=== PATIENT | female | born 1940 | race African-American/Black ===

== ENCOUNTER 2017-04-12 14:14 | Emergency (ER) | payer MEDICARE, BC ==
[~2017-04-12] VITALS: Ht 157.5 cm; Wt 68.0 kg
--- NOTE | 2017-04-12 14:31 | Emergency Room Report ---
History of Present Illness General Chief Complaint: Head Injury Source: Patient Present Illness HPI 77-year-old female, with history of hypertension, end-stage renal disease on peritoneal dialysis, not on any blood thinners, no aspirin, presenting with fall and closed head injury. Patient states that she was waiting for her taxi to calm, sent down from a high curb, missed a step and then fell forward. Patient states that she fell face first, hit her forehead, sustaining laceration and hematoma to left forehead. There is no LOC. Patient got up with assistance. Patient is able to ambulate after the fall. She denies any blurry vision nausea vomiting. Patient also sustained abrasion to left knee. Only complaining of pain to left forehead. States that she has chronic neck pain but not necessarily worse than normal Allergies: Coded Allergies: No Known Allergies (Unverified , 04/12/17) Patient History Past Medical History: see triage record Past Surgical History: none Pertinent Family History: none Reviewed Nursing Documentation: PMH: Agreed, PSxH: Agreed Nursing Documentation-PMH Hx Hypertension: Yes Hx Dialysis: Yes Hx Seizures: Yes Review of Systems All Other Systems: negative except mentioned in HPI Physical Exam Vital Signs Date Time Temp Pulse Resp B/P (MAP) Pulse Ox O2 Delivery O2 Flow Rate FiO2 04/12/17 14:13 97.9 76 16 175/90 98 Room Air Sp02 EP Interpretation: reviewed, normal General Appearance: normal inspection, well appearing, no apparent distress, alert, GCS 15, non-toxic Head: normocephalic - Left not boggy 5 x 5 cm hematoma left forehead, 3 cm linear laceration under her left eyebrow. No active bleeding Eyes: bilateral eye normal inspection, bilateral eye PERRL, bilateral eye EOMI ENT: normal ENT inspection, normal pharynx, normal voice, moist mucus membranes Neck: full range of motion, other - Paraspinal cervical tenderness, no midline tenderness Respiratory: normal inspection, lungs clear, normal breath sounds, no respiratory distress, no retraction, no wheezing, speaking full sentences, chest symmetrical Cardiovascular #1: normal inspection, regular rate, rhythm, no edema, normal capillary refill Cardiovascular #2: 2+ radial (R), 2+ radial (L) Gastrointestinal: normal inspection, non tender, soft, non-distended, no guarding Musculoskeletal: normal inspection, back normal, normal range of motion, non- tender, other - abrasion to b/l knees. no effusion. FROM Neurologic: normal inspection, alert, oriented x3, responsive, [employer] worker III-XII nml as tested, motor strength/tone normal, sensory intact, speech normal Psychiatric: normal inspection, judgement/insight normal, memory normal Skin: normal inspection, normal color, no rash, warm/dry, well hydrated, normal turgor Procedures Laceration/Wound Repair Laceration/Wound Repair : Consent: Verbal Wound Location: head Wound's Depth, Shape: superficial Wound Length (cm): 4 Wound Explored: clean Irrigated w/ Saline (ccs): 500 Betadine Prep?: Yes Anesthesia: 1% Lidocaine Volume Anesthetic (ccs): 3 Wound Repaired With: sutures Suture Size/Type: 6:0 Number of Sutures: 6 Sterile Dressing Applied?: Yes Patient Tolerated: Well Complications: None Medical Decision Making Diagnostic Impression: Primary Impression: Closed head injury Additional Impression: Facial laceration ER Course 77-year-old female, with mechanical fall Tetanus is already up to date DDX: Mechanical fall, closed head injury, rule out intracranial bleed Plan: CT head and CT C-spine Lac repair ER course: Patient has remained stable during ED stay. Has remained awake alert, conversive Lac repaired on forehead Disposition: Patient is to be discharged to home. Patient is instructed to follow up with their primary care doctor OR ED in 5-7 days for suture removal Strict return precautions discussed with patient such as worsening/severe pain , blurry vision, nausea, vomiting, motor or sensory weakness which may indicate severe illness. Patient verbalizes understanding and agrees with plan. Please note that this Emergency Department Report was dictated using [employer] project management technology software, occasionally this can lead to erroneous entry secondary to interpretation by the dictation equipment CT/MRI/US Diagnostic Results CT/MRI/US Diagnostic Results #1: Imaging Test Ordered: CT C spine Impression Findings: There is slight reversal of the normal cervical lordosis in the lower cervical spine. There is very slight posterior displacement of C6 and C7. The remainder the bony alignment is normal. There is degenerative remodeling of the C6 vertebral body. The remaining vertebral body heights are preserved. There is degenerative disc narrowing at C5-6 and C6-7. The remaining disc spaces are preserved. No acute fractures. There is thickening and calcification of the posterior aspect of the atlantoaxial ligament. There is slight irregularity of the tip of the odontoid. At C4-5, there is mild to moderate narrowing of the right neural foramen due to facet degeneration. No significant disc bulge or protrusion or spinal stenosis. At C5-6, there is marked degenerative disc narrowing, as mentioned earlier. There appears to be partial ankylosis of the disc. There is mild circumferential annular bulge and posterior osteophyte formation which results in borderline narrowing of the spinal canal. There is minimal right and mild left neural foraminal stenosis , due to uncinate and facet hypertrophy. At C6-7, posterior disc bulge/osteophyte complex results in moderate narrowing of the spinal canal. There is moderate to severe right, moderate left neural foraminal stenosis, due predominantly uncinate hypertrophy. Progress of the remaining disc levels, no significant disc bulge or protrusion, spinal stenosis, or neural frontal stenosis. There is incidental finding of right maxillary sinus disease. There is a calcified nodule in the right thyroid lobe and generalized heterogeneity of the right thyroid lobe Impression: No acute bony trauma Degenerative changes as detailed on a level basis above Right maxillary sinus disease Calcified subcentimeter nodule in the right thyroid lobe and generalized heterogeneity of the right thyroid lobe. No further followup necessary CT/MRI/US Diagnostic Results #2: Imaging Test Ordered: CT Head Impression Findings: There is a left periorbital and frontal supraorbital scalp hematoma. No underlying calvarial fracture demonstrated. No acute hemorrhage nor edema. No mass effect or midline shift. Small old lacunar infarct is seen in the anterior left souza radiata. There is age-related enlargement of ventricles and extra axial CSF spaces. There is periventricular deep white matter chronic ischemic change. There is right maxillary sinus mucosal disease. The mastoids are clear. The orbits are unremarkable. Impression: Evidence of periorbital and supraorbital scalp soft tissue trauma on the left Negative for acute intracranial bleed or mass effect Chronic and age-related changes, as described Sinus disease Last Vital Signs Date Time Temp Pulse Resp B/P (MAP) Pulse Ox O2 Delivery O2 Flow Rate FiO2 04/12/17 14:13 97.9 76 16 175/90 98 Room Air Disposition: HOME, SELF-CARE Condition: Improved Patient Instructions: Facial Laceration, [id number] Additional Instructions: PLEASE COME BACK TO THE ED OR YOUR PCP IN 5-7 DAYS FOR SUTURE REMOVAL Mary Bower M.D. Apr 12, 2017 14:31
[2017-04-12] MEDS ORDERED: Tetanus/Diptheria/Pertussis Vaccine 0.5ml Syr IM ONE (16:00)
--- NOTE | 2017-04-12 16:03 | Diagnostic Imaging Report ---
Indications: Seizures. Status post fall. Trauma Technique: Spiral acquisitions obtained through the brain. Angled axial and coronal 5 x 5 mm slices were reconstructed. Total dose length product 1003-75 mGycm. CTDI vol(s) 70 mGy. Dose reduction achieved using automated exposure control Comparison: None Findings: There is a left periorbital and frontal supraorbital scalp hematoma. No underlying calvarial fracture demonstrated. No acute hemorrhage nor edema. No mass effect or midline shift. Small old lacunar infarct is seen in the anterior left souza radiata. There is age-related enlargement of ventricles and extra axial CSF spaces. There is periventricular deep white matter chronic ischemic change. There is right maxillary sinus mucosal disease. The mastoids are clear. The orbits are unremarkable. Impression: Evidence of periorbital and supraorbital scalp soft tissue trauma on the left Negative for acute intracranial bleed or mass effect Chronic and age-related changes, as described Sinus disease The CT scanner at [facility] is accredited by the [employer] and the scans are performed using protocols designed to limit radiation exposure to as low as reasonably achievable to attain images of sufficient resolution adequate for diagnostic evaluation.
--- NOTE | 2017-04-12 16:09 | Diagnostic Imaging Report ---
Indication: PAIN: Seizures, status post fall Technique: Spiral acquisitions obtained through the cervical spine. No IV contrast utilized. Multiplanar reconstructions were generated. Total dose length product 284 mGycm. CTDIvol(s) 14 mGy. Dose reduction achieved using automated exposure control Comparison: None Findings: There is slight reversal of the normal cervical lordosis in the lower cervical spine. There is very slight posterior displacement of C6 and C7. The remainder the bony alignment is normal. There is degenerative remodeling of the C6 vertebral body. The remaining vertebral body heights are preserved. There is degenerative disc narrowing at C5-6 and C6-7. The remaining disc spaces are preserved. No acute fractures. There is thickening and calcification of the posterior aspect of the atlantoaxial ligament. There is slight irregularity of the tip of the odontoid. At C4-5, there is mild to moderate narrowing of the right neural foramen due to facet degeneration. No significant disc bulge or protrusion or spinal stenosis. At C5-6, there is marked degenerative disc narrowing, as mentioned earlier. There appears to be partial ankylosis of the disc. There is mild circumferential annular bulge and posterior osteophyte formation which results in borderline narrowing of the spinal canal. There is minimal right and mild left neural foraminal stenosis, due to uncinate and facet hypertrophy. At C6-7, posterior disc bulge/osteophyte complex results in moderate narrowing of the spinal canal. There is moderate to severe right, moderate left neural foraminal stenosis, due predominantly uncinate hypertrophy. Progress of the remaining disc levels, no significant disc bulge or protrusion, spinal stenosis, or neural frontal stenosis. There is incidental finding of right maxillary sinus disease. There is a calcified nodule in the right thyroid lobe and generalized heterogeneity of the right thyroid lobe Impression: No acute bony trauma Degenerative changes as detailed on a level basis above Right maxillary sinus disease Calcified subcentimeter nodule in the right thyroid lobe and generalized heterogeneity of the right thyroid lobe. No further followup necessary The CT scanner at [facility] is accredited by the [employer] and the scans performed using protocols designed to limit radiation exposure to as low as reasonably achievable to attain images of sufficient resolution adequate for diagnostic evaluation.
[2017-04-12] MEDS ORDERED: Bacitracin Oint UD TOPIC ONE ×2 (16:30)
[2017-04-12 16:46] VITALS: BP 158/78
== END 2017-04-12 17:06 | disposition home or self-care (01) ==
LOC: EDBD 14:14 → EMR 16:15
DX: S01.112A Laceration without foreign body of left eyelid and periocular area, initial encounter (principal); S00.83XA Contusion of other part of head, initial encounter; S80.211A Abrasion, right knee, initial encounter; S80.212A Abrasion, left knee, initial encounter; W19.XXXA Unspecified fall, initial encounter; Y92.89 Other specified places as the place of occurrence of the external cause; I12.0 Hypertensive chronic kidney disease with stage 5 chronic kidney disease or end stage renal disease; N18.6 End stage renal disease; Z99.2 Dependence on renal dialysis; M50.322 Other cervical disc degeneration at C5-C6 level; M47.812 Spondylosis without myelopathy or radiculopathy, cervical region; J32.0 Chronic maxillary sinusitis
CPT/HCPCS: 70450; 72125; 99284